=== PATIENT | male | born 1980 | race Two or more races ===

== ENCOUNTER 2020-03-12 12:54 | Emergency (ER) | payer SELFPAY ==
[~2020-03-12] VITALS: Ht 177.8 cm; Wt 73.0 kg
[2020-03-12 12:58] VITALS: BP 142/80
== END 2020-03-12 14:39 | disposition left against medical advice (07) ==
LOC: ER 12:54
DX: Z53.21 Procedure and treatment not carried out due to patient leaving prior to being seen by health care provider (principal)